=== PATIENT | male | born 1995 | race Caucasian/White ===

== ENCOUNTER 2019-09-15 10:42 | Emergency (ER) | payer SELFPAY ==
[~2019-09-15] VITALS: Ht 170 cm; Wt 72.0 kg
--- NOTE | 2019-09-15 10:58 | ED GI ---
General Chief Complaint: Rect Problems Stated Complaint: RECTAL PAIN Nursing Triage Note: C/O RECTAL PAIN AND DYSURIA Sepsis Screen: No Definite Risk Source of Information: Patient Exam Limitations: No Limitations History of Present Illness Date Seen by Provider: Sep 15, 2019 Time Seen by Provider: 10:53 Initial Comments To ER with rectal pain since yesterday. States he gets this about once a year and usually goes away on its own. Also reports that he was exposed to chlamydia and has had occasional burning on urination, weak stream. Timing/Duration: 1-2 Days Severity/Quality: Moderate Radiation: No Radiation Activities at Onset: None Allergies and Home Medications Allergies Coded Allergies: No Known Drug Allergies (Unverified , 09/15/19) Home Medications No Active Prescriptions or Reported Meds Patient Home Medication List Home Medication List Reviewed: Yes Review of Systems Review of Systems Constitutional: see HPI EENTM: No Symptoms Reported Respiratory: No Symptoms Reported Cardiovascular: No Symptoms Reported Gastrointestinal: See HPI Genitourinary: See HPI Musculoskeletal: no symptoms reported Skin: no symptoms reported Psychiatric/Neurological: No Symptoms Reported Endocrine: No Symptoms Reported Hematologic/Lymphatic: No Symptoms Reported Past Kkdwiil-Ugxaom-Rucipl Hx Patient Social History Alcohol Use: Occasionally Uses Recreational Drug Use: Yes Drug of Choice: THC Smoking Status: Current Everyday Smoker Type Used: Cigarettes Recent Foreign Travel: No Contact w/Someone Who Travel: No Recent Infectious Disease Expo: No Physical Exam Vital Signs Vital Signs - First Documented 09/15/19 10:49 Temp 36.8 Pulse 105 Resp 18 B/P (MAP) 151/99 (116) Pulse Ox 98 Capillary Refill : Less Than 3 Seconds Height/Weight/BMI Height: '" Weight: lbs. oz. kg; 24.00 BMI Method: General Appearance: WD/WN, no apparent distress HEENT: PERRL/EOMI, normal ENT inspection Neck: non-tender, full range of motion Respiratory: no respiratory distress, no accessory muscle use Cardiovascular: regular rate, rhythm, no murmur Gastrointestinal: normal bowel sounds, non tender, soft, other (exam of the anus with Joaquín Stevens on that side, there is a thrombosed external hemorrhoid on the left. I did offer excision under local anesthesia, also offered prescription for topical cream, he would prefer just to the cream) Rectal: hemorrhoids, tenderness Extremities: normal range of motion, non-tender Neurologic/Psychiatric: alert, normal mood/affect, oriented x 3 Skin: normal color, warm/dry Progress/Results/Core Measures Results/Orders My Orders Orders - SINA DEL RIO APRN Ua Culture If Indicated (09/15/19 10:51) Neis Damon Dna Urine Test (09/15/19 10:51) Chlamydia Trachomatis Urine (09/15/19 10:51) Azithromycin Tablet (Zithromax Tablet) (09/15/19 11:00) Ceftriaxone For Im Use (Rocephin For Im (09/15/19 11:00) Lidocaine 1% Inj 20 Ml (Xylocaine 1% Inj (09/15/19 11:00) Vital Signs/I&O 09/15/19 10:49 Temp 36.8 Pulse 105 Resp 18 B/P (MAP) 151/99 (116) Pulse Ox 98 Blood Pressure Mean: 116 POS Departure Impression Primary Impression: Hemorrhoids Qualified Codes: K64.9 - Unspecified hemorrhoids Disposition: HOME, SELF-CARE Condition: Stable Departure-Patient Inst. Decision time for Depature: 10:59 Referrals: MAURA MCKENZIE BRETT D DO KIDO, TAKAAKI MD NO,LOCAL PHYSICIAN (PCP) Primary Care Physician Patient Instructions: Hemorrhoids (DC) Add. Discharge Instructions: 1. Apply the cream as directed 2. Follow up with one of the surgeons listed, if this fails to resolve then surgery can remove this as well. Take the stool softener (docusate) twice daily and increase your water intake so that your stools are soft which will help with pain. Scripts Docusate Sodium (Colace) 100 Mg Capsule 100 MG PO BID, #20 CAP Prov: SINA DEL RIO APRN 09/15/19 Hydrocortisone (Proctocort) 28.4 Gm Cream..g. 1 GM TP TID for 7 Days, #1 TUBE Prov: SINA DEL RIO APRN 09/15/19 Benzocaine (Americaine) 28 Gm Oint...g. 1 GM TP 6x daily, #2 TUBE Prov: SINA DEL RIO APRN 09/15/19 SINA DEL RIO APRN Sep 15, 2019 10:58 POS
[2019-09-15] MEDS ORDERED: LIDOCAINE 1% INJ 20 ML 20 ML VIAL INJ ONE (11:00)
[2019-09-15] MEDS ORDERED: AZITHROMYCIN 250 MG TAB (ZITHROMAX) PO SCH (11:00)
[2019-09-15] MEDS ORDERED: cefTRIAXone 1,000 MG/2.86 ml vial (IM ONLY) IM SCH (11:00)
[2019-09-15] MEDS ORDERED: [UNRECOGNIZED DRUG - CODE] TP (11:04)
[2019-09-15] MEDS ORDERED: HYDR28.336 TP (11:04)
[2019-09-15] MEDS ORDERED: DOCU-143 PO (11:04)
[2019-09-15 11:12] VITALS: BP 151/99
[2019-09-15 11:15] LABS: CLARITY,URINE CLEAR; GLUCOSE, URINE (UA) NEGATIVE (NEGATIVE); KETONES,URINE TRACE (NEGATIVE); LEUKOCYTE ESTERASE ,URINE NEGATIVE (NEGATIVE); NITRITE,URINE NEGATIVE (NEGATIVE); PH,URINE 5.5 (5-9); PROTEIN,URINE 1+ (NEGATIVE)
[2019-09-15 11:21] LABS: BACTERIA,URINE NEGATIVE /HPF; COLOR,URINE ORANGE
[2019-09-15 11:22] LABS: BILIRUBIN,URINE 2+ (NEGATIVE)
== END 2019-09-15 11:18 | disposition home or self-care (01) ==
LOC: ER 10:44
DX: K64.5 Perianal venous thrombosis (principal); F17.210 Nicotine dependence, cigarettes, uncomplicated
CPT/HCPCS: 36415; 81000; 87088; 87491; 87591; 99284